=== PATIENT | male | born 1995 | race African-American/Black ===

== ENCOUNTER 2021-02-12 16:28 | Emergency (ER) | payer SELFPAY ==
[2021-02-12 16:30] VITALS: BP 121/74; PULSE 84; RESP 20; TEMP 36.6; O2SAT 99
[2021-02-12] MEDS: cefTRIAXone 250 MG VIAL 500 MG IM (17:07)
[2021-02-12] MEDS: LIDOCAINE HCL 1% LOCAL INJ 20 ML VIAL (17:07)
--- NOTE | 2021-02-12 17:16 | ED.GENADULT ---
HPI - General Adult General Chief complaint: Unspecified Stated complaint: possible STI Time Seen by Provider: 02/12/21 16:38 Source: patient Mode of arrival: ambulatory Limitations: no limitations History of Present Illness HPI narrative: Patient a 25-year-old male who presents noting that he is continuing to have drainage from his penis was seen at an outside hospital test and treated for STDs but notes no resolution of symptoms had a partner that had chlamydia patient otherwise denies any other complaints or concerns and is otherwise resting comfortably in the room upon arrival patient in no distress Related Data Allergies Allergy/AdvReac Type Severity Reaction Status Date / Time shellfish derived Allergy Unknown Verified 02/12/21 16:34 Review of Systems Review of Systems: All systems reviewed & are unremarkable except as noted in HPI and below PMFSH Social History Social History Smoking status: Current every day smoker Gender identity (if verbalized by the patient): Male Exam Narrative: Exam Narrative: GENERAL: Well-appearing, well-nourished, and in no acute distress. HEAD: Normocephalic, atraumatic. EYES: PERRLA and EOMI. ENT: Nares clear, no rhinorrhea or epistaxis. Mucous membranes moist. CHEST: Clear to auscultation. No respiratory distress. No wheezes rales or rhonchi HEART: Regular rate and rhythm. No murmur heard. Normal peripheral pulses. ABDOMEN: Soft, nontender, nondistended EXTREMITIES: Normal range of motion. No edema. SKIN: Warm, dry, no rash. NEURO: No focal deficits. Alert and oriented x3. PSYCH: Normal mood and affect. Course Course Emergency Course: Patient tested treated for STDs will follow with primary care felt appropriate for outpatient reevaluation Vital Signs Vital signs: Vital Signs Temperature 97.8 F 02/12/21 16:30 Pulse Rate 84 02/12/21 16:30 Respiratory Rate 20 02/12/21 16:30 Blood Pressure 121/74 02/12/21 16:30 Pulse Oximetry 99 02/12/21 16:30 Temperature 97.8 F 02/12/21 16:30 Pulse Rate 84 02/12/21 16:30 Respiratory Rate 20 02/12/21 16:30 Blood Pressure 121/74 02/12/21 16:30 Pulse Oximetry 99 02/12/21 16:30 Medical Decision Making MDM Narrative Medical decision making narrative: Patient is afebrile nontoxic-appearing no distress will be treated on outpatient basis agreeing to follow with primary care Vital Signs Vital Signs: Vital Signs Temperature 97.8 F 02/12/21 16:30 Pulse Rate 84 02/12/21 16:30 Respiratory Rate 20 02/12/21 16:30 Blood Pressure 121/74 02/12/21 16:30 Pulse Oximetry 99 02/12/21 16:30 Temperature 97.8 F 02/12/21 16:30 Pulse Rate 84 02/12/21 16:30 Respiratory Rate 20 02/12/21 16:30 Blood Pressure 121/74 02/12/21 16:30 Pulse Oximetry 99 02/12/21 16:30 Lab Data Labs: Lab Results 02/12/21 02/12/21 Range/Units 17:05 17:05 Urine Color Pending Urine Appearance Pending Urine pH Pending Ur Specific [place] Pending Urine Protein Pending Urine Glucose (UA) Pending Urine Ketones Pending Ur Blood (Man) Pending Urine Nitrate Pending Urine Bilirubin Pending Urine Urobilinogen Pending Leukocyte Esterase Rfl Pending C.trachomatis RNA (TMA) Pending N.gonorrhoeae RNA (TMA) Pending Discharge Plan Discharge Clinical Impression: Urethritis Patient Disposition: Home, Self-Care Condition: Stable Instructions: Antibiotic Form, Nonspecific Urethritis in Men (ED) Additional Instructions: Follow up with primary care in the next 2-3 days for re-evaluation. Antibiotics as prescribed. Increase fluid intake. Tylenol and Motrin for pain and or fever if needed. Follow up with your doctor for further care. Call your doctor or return to the emergency department if needed for worsening symptoms or problems, especially if you have persistent high fever, vomi
[2021-02-12 17:20] LABS: Add Urine Microscopic? YES; Appearance Urine Clear (Clear); Bacteria Urine Trace /hpf; Bilirubin Urine Negative (Negative); Blood Urine Negative (Negative); Color Urine Yellow (Yellow); Glucose Urine UA Negative (Negative); Ketones Urine Negative (Negative); Leukocyte Esterase Ur Trace LEU/UL (Negative); Mucus Urine Moderate /lpf; Nitrate Urine Negative (Negative); Protein Urine 1+ mg/dL (Negative); Specific Grav Ur 1.025 (1.001-1.035); Squamous Epithelial Cell Urine Rare /hpf (Few); Urobilinogen Urine Negative mg/dL (<2.0)
== END 2021-02-12 17:42 | disposition home or self-care (01) ==
LOC: ANHED 17:33
PROVIDERS: Emergency Medicine Emergency Medical Services; Emergency Provider Emergency Medicine
DX: N34.2 Other urethritis (principal); F17.200 Nicotine dependence, unspecified, uncomplicated
CPT/HCPCS: 81001; 87086; 87491; 87591; 96372; 99283; J0696